=== PATIENT | male | born 1980 | race Caucasian/White ===

== ENCOUNTER 2017-11-21 01:28 | Inpatient (IN) | payer OTHER ==
[2017-11-21 01:52] VITALS: BMI 34.4
--- NOTE | 2017-11-21 02:23 | PDOC ---
History of Present Illness - General Chief Complaint: Pain, Acute Stated Complaint: STOMACH PAIN Time Seen by Provider: 11/21/17 01:41 History Source: Patient Exam Limitations: No Limitations - History of Present Illness Travel History: No Initial Comments: 11/21/17 02:48 Best Contact: PCP: None Pmhx: Hypertension, prediabetes Pshx:? Microlumbar discectomy/lumbar Allergies: NO KNOWN DRUG ALLERGIES FH:None Social Hx: Cigarettes/ 0 Alcohol/ 0 Drugs/0 LMP:N/A 37-year-old male presents to the ER complaining of lower abdominal pains with nausea but no vomiting. Patient denies fever, chills, headache, dizziness, lightheadedness, chest pain, shortness of breath, flank pains, urinary symptoms : Frequency/urgency/hesitancy, hematuria. Pain is described as 8/10 pressure nonradiating intermittent discomfort. The pain is exacerbated when laying prone and alleviated when laying supine. Patient states when he was [place] 8 months ago, he was diagnosed with appendicitis and cholecystitis. Patient states he did not have surgery because he believed they only told him that for financial gain. Patient last ate 12 hours ago. Past History - Past Medical History Allergies/Adverse Reactions: Allergies Allergy/AdvReac Type Severity Reaction Status Date / Time No Known Allergies Allergy Verified 11/21/17 02:09 COPD: No - Suicide/Smoking/Psychosocial Hx Smoking History: Never smoked Have you smoked in the past 12 months: No Information on smoking cessation initiated: No Hx Alcohol Use: No Drug/Substance Use Hx: No Review of Systems - Review of Systems Able to Perform ROS?: Yes Comments:: 11/21/17 02:51 CONSTITUTIONAL: Absent: fever, chills, diaphoresis, generalized weakness, malaise, loss of appetite HEENT: Absent: rhinorrhea, nasal congestion, throat pain, throat swelling, difficulty swallowing, mouth swelling, ear pain, eye pain, visual Changes CARDIOVASCULAR: Absent: chest pain, loss of consciousness, palpitations, irregular heart rate, peripheral edema RESPIRATORY: Absent: cough, shortness of breath, dyspnea with exertion, orthopnea, wheezing, stridor, hemoptysis GASTROINTESTINAL: +RLQ/LLQ pain Absent: abdominal distension, nausea, vomiting, diarrhea, constipation, melena, hematochezia GENITOURINARY: Absent: dysuria, frequency, urgency, hesitancy, hematuria, flank pain, genital pain MUSCULOSKELETAL: Absent: myalgia, arthralgia, joint swelling SKIN: Absent: rash, itching, pallor HEMATOLOGIC/IMMUNOLOGIC: Absent: easy bleeding, easy bruising, lymphadenopathy, frequent infections ENDOCRINE: Absent: unexplained weight gain, unexplained weight loss, heat intolerance, cold intolerance NEUROLOGIC: Absent: headache, focal weakness or paresthesias, dizziness, unsteady gait, seizure, mental status changes, bladder or bowel incontinence PSYCHIATRIC: Absent: anxiety, depression, suicidal or homicidal ideation, hallucinations. Is the patient limited Lao proficient: No *Physical Exam - Vital Signs Last Vital Signs Temp Pulse Resp BP Pulse Ox 101.4 F H 96 H 20 153/98 99 11/21/17 01:40 11/21/17 01:40 11/21/17 01:40 11/21/17 01:40 11/21/17 01:40 - Physical Exam Comments: 11/21/17 02:52 GENERAL: Well developed, well nourished. Awake and alert. No acute distress. HEENT: Normocephalic, atraumatic. PERRLA, EOMI. No conjunctival pallor. Sclera are non- icteric. Moist mucous membranes. Oropharynx is clear. NECK: Supple. Full ROM. No JVD. Carotid pulses 2+ and symmetric, without bruits. No thyromegaly. No lymphadenopathy. CARDIOVASCULAR: Regular rate and rhythm. No murmurs, rubs, or gallops. Distal pulses are 2+ and symmetric. PULMONARY: No evidence of respiratory distress. Lungs clear to auscultation bilaterally. No wheezing, rales or rhonchi. ABDOMINAL: +RLQ/LLQ pain on palp Soft. Non-distended. No rebound or guarding. No organomegaly. Normoactive bowel sounds. MUSCULOSKELETAL Normal range of motion at all joints. No bony deformities or tenderness. No CVA tenderness. EXTREMITIES: No cyanosis. No clubbing. No edema. No calf tenderness. SKIN: Warm and dry. Normal capillary refill. No rashes. No jaundice. NEUROLOGICAL: Alert, awake, appropriate. Cranial nerves 2-12 intact. No deficits to light touch and temperature in face, upper extremities and lower extremities. No motor deficits in the in face, upper extremities and lower extremities. Normoreflexic in the upper and lower extremities. Normal speech. Toes are down- going bilaterally. Gait is normal without ataxia. PSYCHIATRIC: Cooperative. Good eye contact. Appropriate mood and affect. ED Treatment Course - LABORATORY CBC & Chemistry Diagram: 11/21/17 02:19 11/21/17 02:19 - RADIOLOGY Radiograph Interpretation: 11/21/17 02:52 CT abd/pelvis po/iv contrast; Positive for acute appendicitis. The appendix is dilated up to 1.8 cm. There is wall thickening and periappendiceal inflammation. No abscess. No free air. No free fluid. No bowel obstruction. Right renal cyst. Otherwise normal kidneys urinary tract and urinary bladder. Normal liver, normal gallbladder, normal spleen, normal pancreas Progress Note - Progress Note Progress Note: 0501hrs: called Dr. Fernandez/ Surgery validation scientist/Dr. Simpson covering [phone] 0505hrs: Microblogged Hospitalist 0555hrsL Called Dr. Fernandez/surgery validation scientist/Dr. Simpson covering [phone] 0604hrs: Spoke to Dr. Simpson regarding pt. Will call nursing hatchery supervisor to book case 0605hrs; Hospitallist microblogged *DC/Admit/Observation/Transfer Diagnosis at time of Disposition: Acute appendicitis Qualifiers: Acute appendicitis type: unspecified acute appendicitis type Qualified Code(s) : K35.80 - Unspecified acute appendicitis - Discharge Dispostion Condition at time of disposition: Guarded Decision to Admit order: Yes - Referrals - Patient Instructions - Post Discharge Activity
[2017-11-21 02:27] LABS: BASO % 0.6 % (0-2.0); EOS % 1.1 % (0-4.5); HEMATOCRIT 41.3 % (35.4-49); LYMPH % 16.6 % (8-40); MCH 29.6 pg (25.7-33.7); MCHC 33.9 g/dl (32.0-35.9); MEAN CELL VOLUME 87.4 fl (80-96); MEAN PLT VOLUME 9.1 fl (7.5-11.1); MONO % 6.9 % (3.8-10.2); NEUT % 74.8 % (42.8-82.8); PLATELET COUNT 188 K/MM3 (134-434); RBC 4.72 M/mm3 (4.00-5.60); RDW 12.6 % (11.9-15.9); WHITE BLOOD COUNT 10.9 K/mm3 (4.0-10.0)
[2017-11-21] MEDS ORDERED: SODIUM CHLORIDE 0.9% 500 ML INFUS.BAG IV ONE (02:29)
[2017-11-21 02:42] LABS: INR 1.3 (0.82-1.09); PROTHROMBIN TIME (PATIENT) 14.7 SEC (9.7-13.0)
[2017-11-21 02:53] LABS: ALBUMIN 3.4 g/dl (3.4-5.0); ALK PHOS 66 U/L (45-117); ANION GAP 9 (8-16); BILIRUBIN,TOTAL 0.6 mg/dL (0.2-1.0); BLOOD UREA NITROGEN 10 mg/dL (7-18); CALCIUM 8.6 mg/dL (8.5-10.1); CHLORIDE 104 mmol/L (98-107); CO2 25 mmol/L (21-32); CREATININE 0.8 mg/dL (0.7-1.3); GLUCOSE,RANDOM 107 mg/dL (74-106); POTASSIUM 3.6 mmol/L (3.5-5.1); SGOT/AST 11 U/L (15-37); SGPT/ALT 24 U/L (12-78); SODIUM 138 mmol/L (136-145); TOT PROT 6.5 g/dl (6.4-8.2)
[2017-11-21] MEDS ORDERED: ONDANSETRON 4 MG/2 ML VIAL ONE ×3 (04:38→08:23)
[2017-11-21] MEDS ORDERED: morphine SULFATE 4 MG/ML VIAL ONE (04:38)
[2017-11-21] MEDS ORDERED: ONDANSETRON 4 MG/2 ML VIAL IVPUSH ONE (04:43)
[2017-11-21] MEDS ORDERED: morphine CARPU-JECT 4 MG/1 ML DISP.SYRIN IVPUSH ONE (04:43)
[2017-11-21] MEDS ORDERED: PIPERACILLIN/TAZOB 4.5 GM 4.5 GM in DEXTROSE 5%-WATER 100 ML IVPB ONE ×4 (05:01→21:00)
[2017-11-21] MEDS ORDERED: PIPERACILLIN/TAZOB 4.5 GM 4.5 GM/100 ML BAG IVPB ONE (05:04)
[2017-11-21 05:19] LABS: URINE APPEARANCE CLEAR; URINE BILIRUBIN NEGATIVE (<2.0 mg/dL); URINE BLOOD NEGATIVE (NEGATIVE); URINE COLOR LTYELLOW; URINE GLUCOSE (UA) NEGATIVE (NEGATIVE); URINE KETONE NEGATIVE (NEGATIVE); URINE LEUK ESTERASE NEGATIVE (NEGATIVE); URINE NITRITE NEGATIVE (NEGATIVE); URINE PROTEIN NEGATIVE (NEGATIVE)
--- NOTE | 2017-11-21 05:35 | PN ---
Teaching Attending Note Name of Resident: Tomás Sofia ATTENDING PHYSICIAN STATEMENT I saw and evaluated the patient. I reviewed the resident's note and discussed the case with the resident. I agree with the resident's findings and plan as documented. SUBJECTIVE: Patient is a 37 year old man with history of hypertension who presents to the ER complaining of lower abdominal pains with nausea but no vomiting. Patient denies fever, chills, headache, dizziness, lightheadedness, chest pain, shortness of breath, flank pains, frequency or dysuria. Has had one episode of loose BM while in the ER. Pain is described as 8/10 pressure nonradiating intermittent discomfort. The pain is exacerbated when laying prone and alleviated when laying supine. Patient states when he was [place] 8 months ago, he was diagnosed with appendicitis and cholecystitis. Patient states he did not have surgery because he believed they only told him that for financial gain. Patient last ate about [address] of the abdomen showed acute appendicitis. OBJECTIVE: Alert. Appears uncomfortable. Not in acute respiratory distress. Vital Signs Period Temp Pulse Resp BP Sys/Álvarez Pulse Ox Last 24 Hr 101.4 F 96 20 153/98 99 HEENT: No Jaundice, eye redness or discharge, PERRLA, EOMI. Normocephalic, atraumatic. External ears are normal and hearing is grossly intact. No nasal discharge. Neck: Supple, nontender. No palpable adenopathy or thyromegaly. No JVD Chest: Good effort. Clear to auscultation and percussion. Heart: Regular. No S3, rub or murmur Abdomen: Not distended, soft, tender RLQ with rebound; no HSM. No guarding. Hypoactive bowel sounds. Ext: Peripheral pulses intact. No leg edema. Skin: Warm and dry. No petechiae, rash or ecchymosis. Neuro: Alert. Oriented x3. CN 2-12 grossly intact. Sensation grossly intact in all four extremities and DTR are symmetric. Laboratory Results - last 24 hr 11/21/17 11/21/17 11/21/17 02:19 02:19 02:19 WBC 10.9 H RBC 4.72 Hgb 14.0 Hct 41.3 MCV 87.4 MCH 29.6 MCHC 33.9 RDW 12.6 Plt Count 188 MPV 9.1 Absolute Neuts (auto) 8.1 Neutrophils % 74.8 Lymphocytes % 16.6 Monocytes % 6.9 Eosinophils % 1.1 Basophils % 0.6 Nucleated RBC % 0 PT with INR 14.70 H INR 1.30 H Sodium 138 Potassium 3.6 Chloride 104 Carbon Dioxide 25 Anion Gap 9 BUN 10 Creatinine 0.8 Creat Clearance w eGFR > 60 Random Glucose 107 H Lactic Acid Calcium 8.6 Total Bilirubin 0.6 AST 11 L ALT 24 Alkaline Phosphatase 66 Total Protein 6.5 Albumin 3.4 Urine Color Urine Appearance Urine pH Ur Specific [place] Urine Protein Urine Glucose (UA) Urine Ketones Urine Blood Urine Nitrite Urine Bilirubin Urine Urobilinogen Ur Leukocyte Esterase 11/21/17 11/21/17 02:19 05:12 WBC RBC Hgb Hct MCV MCH MCHC RDW Plt Count MPV Absolute Neuts (auto) Neutrophils % Lymphocytes % Monocytes % Eosinophils % Basophils % Nucleated RBC % PT with INR INR Sodium Potassium Chloride Carbon Dioxide Anion Gap BUN Creatinine Creat Clearance w eGFR Random Glucose Lactic Acid 1.8 Calcium Total Bilirubin AST ALT Alkaline Phosphatase Total Protein Albumin Urine Color Ltyellow Urine Appearance Clear Urine pH 8.0 Ur Specific [place] 1.015 Urine Protein Negative Urine Glucose (UA) Negative Urine Ketones Negative Urine Blood Negative Urine Nitrite Negative Urine Bilirubin Negative Urine Urobilinogen 2.0 Ur Leukocyte Esterase Negative ASSESSMENT AND PLAN: 1. Acute appendicitis - CT scan confirms appendicitis but no evidence of rupture. Will continue IV Zosyn 3.375 gm q 8 hours, keep him NPO and give IV NS at 100 ml per hour. The ER has already contacted the surgeon. 2. Hypertension - Resume Lisinopril 10 mg bid. 3. DVT prophylaxis - Heparin 5000u sq tid 4. Advance directives - Full code
[2017-11-21] MEDS ORDERED: ONDANSETRON 4 MG/2 ML VIAL IVPUSH PRN ×2 (05:59→19:41)
[2017-11-21] MEDS ORDERED: morphine SULFATE 4 MG/ML VIAL IVPUSH PRN ×2 (05:59→11:32)
[2017-11-21] MEDS ORDERED: LACTATED RINGERS SOLUTION 1,000 ML IV SCH ×2 (06:00→09:30)
--- NOTE | 2017-11-21 06:17 | HP ---
CC: abdominal pain PCP: None HPI: 37 yo M h/o HTN presented to the ED with diffuse abd pain x 1 day. 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 He has had similar sx in Jul while he's in [place] but he refused surgery because, according to the patient, the surgeon there was trying to take his gallbladder out together with the appendix. Patient had one episode of diarrhea in the ED. Denies fever, chills, urinary sx, chest pain, shortness of breath, dizziness, melena. PMH: HTN PSH: None Social History: smoker since 16, casual drinker, denies drug use Family History: non-contributory Allergy: NKDA Home Meds: Lisnopril 20mg daily Tylenol PRN ROS: Constitutional: no fever, +loss of appetite, no weakness or weight change HEENT: +headache, nasal congestion, sore throat, ear pain, vision change Skin: No rash or lesion Cardiovascular: no chest pain, no sob Pulmonary: No cough (dry or productive), colored sputum Endocrine: No polyuria, polydipsia, skin /hair changes, heat/cold intolerance. GI: +active abd pain, no nausea, no vomiting : No frequency, urgency, dysuria, or hematuria. MSK: No joint or muscle pain Psychology: No depression, anxiety, or insomnia. Physical Examination Temp Pulse Resp BP Pulse Ox 101.4 F H 96 H 20 153/98 99 11/21/17 01:40 11/21/17 01:40 11/21/17 01:40 11/21/17 01:40 11/21/17 01:40 General: AAO x 3. able to speak full sentences, NAD appropriate to stated age. Eyes: PERRLA ENT: Oropharynx clear with no lesions/erythema. Neck: Supple with no LAD or masses. Lymph Nodes: No cervical or inguinal LAD. Cardiovascular: RRR, S1 and S2 normal, no m/g/r. Lungs: CTAB Abdomen: Hypoactive bowel sounds. Non-distended, severe tenderness even upon light palpation, +rebound, +psoas sign -rovsing sign Extremeties: No peripheral edema CBCD WBC 10.9 K/mm3 (4.0-10.0) H 11/21/17 02:19 RBC 4.72 M/mm3 (4.00-5.60) 11/21/17 02:19 Hgb 14.0 GM/dL (11.7-16.9) 11/21/17 02:19 Hct 41.3 % (35.4-49) 11/21/17 02:19 MCV 87.4 fl (80-96) 11/21/17 02:19 MCHC 33.9 g/dl (32.0-35.9) 11/21/17 02:19 RDW 12.6 % (11.9-15.9) 11/21/17 02:19 Plt Count 188 K/MM3 (134-434) 11/21/17 02:19 MPV 9.1 fl (7.5-11.1) 11/21/17 02:19 CMP Sodium 138 mmol/L (136-145) 11/21/17 02:19 Potassium 3.6 mmol/L (3.5-5.1) 11/21/17 02:19 Chloride 104 mmol/L (98-107) 11/21/17 02:19 Carbon Dioxide 25 mmol/L (21-32) 11/21/17 02:19 Anion Gap 9 (8-16) 11/21/17 02:19 BUN 10 mg/dL (7-18) 11/21/17 02:19 Creatinine 0.8 mg/dL (0.7-1.3) 11/21/17 02:19 Creat Clearance w eGFR > 60 (>60) 11/21/17 02:19 Calcium 8.6 mg/dL (8.5-10.1) 11/21/17 02:19 Total Bilirubin 0.6 mg/dL (0.2-1.0) 11/21/17 02:19 AST 11 U/L (15-37) L 11/21/17 02:19 ALT 24 U/L (12-78) 11/21/17 02:19 Alkaline Phosphatase 66 U/L (45-117) 11/21/17 02:19 Total Protein 6.5 g/dl (6.4-8.2) 11/21/17 02:19 Albumin 3.4 g/dl (3.4-5.0) 11/21/17 02:19 Imaging: CT abd on 11/21: acute appendicitis. A/P: 37 yo M admitted to med-surg for acute appendicitis. Acute appendicitis, non-perforated - Hemodynamically stable - Cont. Zosyn - Morphine for pain control - Aggressive fluid resusitation - NPO - T&S, coag - Surgery onboard FEN - LR 150cc/hr - Replete lytes prn - NPO HTN - BP controlled off med Prophylaxis - DVT: SCDs Dispo - appendectomy today [facility] PGY2 Pager: [phone] Visit type - Emergency Visit Emergency Visit: Yes ED Registration Date: 11/21/17 Care time: The patient presented to the Emergency Department on the above date and was hospitalized for further evaluation of their emergent condition. - New Patient This patient is new to me today: Yes Date on this admission: 11/22/17 - Critical Care Critical Care patient: No Hospitalist Screening - Colonoscopy Questionnaire Colonoscopy Questionnaire: Colonoscopy Questionnaire - Patient: 50 - 75 years old and never had a screening colonoscopy: Unknown History of colon or rectal polyps, or CA: Unknown History of IBD, Crohn's disease or UC: Unknown History of abdominal radiation therapy as a child: Unknown - Relative: 1 with colon or rectal CA, or polyps at age 60 or younger: Unknown Colon or rectal CA diagnosed at age 45 or younger: Unknown Multiple relatives with colon or rectal CA: Unknown - Outcome: Screening Result: Negative Screen
[2017-11-21] MEDS ORDERED: SUCCINYLCHOLINE CHLORIDE 200 MG/10 ML VIAL ONE (07:29)
[2017-11-21] MEDS ORDERED: PROPOFOL 20 ML ONE (07:29)
[2017-11-21] MEDS ORDERED: ROCURONIUM BROMIDE 50 MG/5 ML VIAL ONE (07:29)
[2017-11-21] MEDS ORDERED: fentaNYL CITRATE 250 MCG/5 ML VIAL ONE (07:29)
[2017-11-21] MEDS ORDERED: BUPIVACAINE HCL/PF 0.5% (5MG/ML) 10 ML VIAL ONE (07:48)
--- NOTE | 2017-11-21 07:55 | CONSULT ---
Consult Consult Specialty:: General Surgery Reason for Consultation:: Acute appendicitis - History of Present Illness Chief Complaint: abdominal pain and fever History of Present Illness: Asked to evaluate this patient who presented to ED c/o one day of lower abdominal apin worse in RLQ and fever and nausea, no vomiting, No other symptoms. Patient has h/o of HTN and had one prior episode several months ago while in [place] prompting a CT scan. Patient given diagnosis of "acute appendicitis " but he opted NOT to have surgery at that time. In ED patient found to have RLQ pain and tenderness with localized rebound, mild fever and mild tachycardia, stable BP with elevated WBC on labs. - History Source History Provided By: Patient, Medical Record Limitations to Obtaining History: No Limitations - Past Medical History Cardio/Vascular: Yes: HTN - Past Surgical History Past Surgical History: Yes: None - Alcohol/Substance Use Hx Alcohol Use: No - Smoking History Smoking history: Current every day smoker Have you smoked in the past 12 months: No Aproximately how many cigarettes per day: 2 - Social History Usual Living Arrangement: With Child Home Medications - Allergies Allergies/Adverse Reactions: Allergies Allergy/AdvReac Type Severity Reaction Status Date / Time No Known Allergies Allergy Verified 11/21/17 02:09 - Home Medications Home Medications: Ambulatory Orders NK [No Known Home Medication] 11/21/17 Family Disease History - Family Disease History Family History: Unremarkable Review of Systems Unable to obtain ROS, reason: this is an error - Review of Systems Constitutional: reports: Fever, Malaise. denies: Chills Eyes: denies: Blurred Vision, Recent Change in Vision HENT: denies: Difficult Swallowing, Nasal Congestion Neck: denies: Decreased ROM, Pain on Movement Cardiovascular: denies: Chest Pain, Palpitations Respiratory: denies: Cough, SOB Gastrointestinal: reports: Abdominal Pain (severe RLQ pain), Nausea. denies: Constipation, Vomiting Genitourinary: denies: Burning, Discharge, Flank Pain Musculoskeletal: denies: Joint Pain, Muscle Weakness Integumentary: denies: Change in Color, Pruritis, Rash Neurological: denies: Change in LOC Psychiatric: denies: Anxiety, Depression Physical Exam Vital Signs: Vital Signs Temperature 98.9 F 11/21/17 07:49 Pulse Rate 80 11/21/17 07:49 Respiratory Rate 16 11/21/17 07:49 Blood Pressure 125/83 11/21/17 07:49 O2 Sat by Pulse Oximetry (%) 99 11/21/17 07:49 Constitutional: Yes: Anxious, Mild Distress, Obese Eyes: Yes: Conjunctiva Clear, EOM Intact HENT: Yes: Atraumatic, Normocephalic Neck: Yes: Supple, Trachea Midline Cardiovascular: Yes: Regular Rate and Rhythm. No: Tachycardia Respiratory: Yes: Regular, CTA Bilaterally Gastrointestinal: Yes: Soft, Abdomen, Obese, Tenderness (RLQ), Tenderness, Rebound (Mild localized) Renal/: No: Bladder Distention, Oliguria Musculoskeletal: No: Joint Stiffness, Joint Swelling Extremities: No: Cool, Cyanosis Neurological: Yes: Alert, Oriented Labs: CBC, BMP 11/21/17 02:19 11/21/17 02:19 Imaging - Results Cat Scan: Report Reviewed, Image Reviewed (I personally reviewed the CT scan abd pelvis. Evidence of acute appendicitis, dilated to 2 cm, with pericoloinc fat stranding, no evidence rupture, no fluid collections.) Problem List - Problems (1) Acute appendicitis Assessment/Plan: CT and clinical evidence of advanced stage acute appendicitis. IV fluids and broad spectrum IV ABx given. To OR emergently for lap appendectomy. Code(s): K35.80 - UNSPECIFIED ACUTE APPENDICITIS Qualifiers: Acute appendicitis type: unspecified acute appendicitis type Qualified Code (s): K35.80 - Unspecified acute appendicitis (2) Abdominal pain Assessment/Plan: CT diagnosis of acute appendicitis as cuase of severe abdominal pain Code(s): R10.9 - UNSPECIFIED ABDOMINAL PAIN Qualifiers: Abdominal location: right lower quadrant Qualified Code(s): R10.31 - Right lower quadrant pain (3) Nausea alone Assessment/Plan: Nausea likely related to acute appendicitis Code(s): R11.0 - NAUSEA (4) Hypertension Assessment/Plan: Patient hyperstensive on presentation which resolved with IV fluids and IV pain meds. Code(s): I10 - ESSENTIAL (PRIMARY) HYPERTENSION
[2017-11-21] MEDS ORDERED: DEXAMETHASONE SOD PHOSPHATE 4 MG/1 ML VIAL ONE ×2 (08:02→08:23)
[2017-11-21] MEDS ORDERED: HEPARIN NA (PORCINE) 5,000 UNITS/ML 1ML VIAL ONE (08:07)
[2017-11-21] MEDS ORDERED: KETOROLAC TROMETHAMINE 30 MG/1 ML VIAL ONE (08:54)
[2017-11-21] MEDS ORDERED: BUPIVACAINE HCL/PF 0.5% (5MG/ML) 10 ML VIAL IJ ONE ×2 (09:02)
[2017-11-21] MEDS ORDERED: BENZOIN/ALOE VERA/STORAX/TOLU 58 ML BOTTLE ONE (09:10)
[2017-11-21] MEDS ORDERED: PROMETHAZINE HCL 25 MG/1 ML VIAL IVPUSH PRN (09:29)
[2017-11-21] MEDS ORDERED: LACTATED RINGERS SOLUTION 1000 ML INFUS.BAG IV SCH (10:00)
[2017-11-21] MEDS: ACETAMINOPHEN 1000 MG/100 ML VIAL (NON FORMULARY) IVPB PRN ×2 (10:05→16:20)
--- NOTE | 2017-11-21 10:24 | PN ---
Physical Exam: SUBJECTIVE: Patient seen and examined, some pain post surgery but feels better, no new complaints. OBJECTIVE: Vital Signs Period Temp Pulse Resp BP Sys/Álvarez Pulse Ox Last 24 Hr 98.9 F-101.4 F 72-96 16-20 121-153/79-98 98-99 General: lying in bed in no acute distress Chest: CTAB, no rales or wheezing Abdomen: soft, obese, RLQ tenderness but improved from exam per patient, unable to hear bowel sounds (just came back from OR), no voluntary or involuntary guarding or rigidity Extremities: no edema Laboratory Results - last 24 hr 11/21/17 11/21/17 11/21/17 02:19 02:19 02:19 WBC 10.9 H RBC 4.72 Hgb 14.0 Hct 41.3 MCV 87.4 MCH 29.6 MCHC 33.9 RDW 12.6 Plt Count 188 MPV 9.1 Absolute Neuts (auto) 8.1 Neutrophils % 74.8 Lymphocytes % 16.6 Monocytes % 6.9 Eosinophils % 1.1 Basophils % 0.6 Nucleated RBC % 0 PT with INR 14.70 H INR 1.30 H Sodium 138 Potassium 3.6 Chloride 104 Carbon Dioxide 25 Anion Gap 9 BUN 10 Creatinine 0.8 Creat Clearance w eGFR > 60 Random Glucose 107 H Lactic Acid Calcium 8.6 Total Bilirubin 0.6 AST 11 L ALT 24 Alkaline Phosphatase 66 Total Protein 6.5 Albumin 3.4 Urine Color Urine Appearance Urine pH Ur Specific [place] Urine Protein Urine Glucose (UA) Urine Ketones Urine Blood Urine Nitrite Urine Bilirubin Urine Urobilinogen Ur Leukocyte Esterase 11/21/17 11/21/17 02:19 05:12 WBC RBC Hgb Hct MCV MCH MCHC RDW Plt Count MPV Absolute Neuts (auto) Neutrophils % Lymphocytes % Monocytes % Eosinophils % Basophils % Nucleated RBC % PT with INR INR Sodium Potassium Chloride Carbon Dioxide Anion Gap BUN Creatinine Creat Clearance w eGFR Random Glucose Lactic Acid 1.8 Calcium Total Bilirubin AST ALT Alkaline Phosphatase Total Protein Albumin Urine Color Ltyellow Urine Appearance Clear Urine pH 8.0 Ur Specific [place] 1.015 Urine Protein Negative Urine Glucose (UA) Negative Urine Ketones Negative Urine Blood Negative Urine Nitrite Negative Urine Bilirubin Negative Urine Urobilinogen 2.0 Ur Leukocyte Esterase Negative Active Medications Generic Name Dose Route Start Last Admin Trade Name Freq PRN Reason Stop Dose Admin Acetaminophen 1,000 mg 11/21/17 09:51 Ofirmev Injection - IVPB 11/22/17 23:59 Q6H PRN PAIN LEVEL 6-10 Lactated Ringer's 1,000 mls @ 150 mls/hr 11/21/17 06:00 11/21/17 06:09 Lactated Ringers Solution IV 150 mls/hr ASDIR PAULY Administration Piperacillin Sod/Tazobactam 100 mls @ 200 mls/hr 11/21/17 13:00 Sod 4.5 gm/ Dextrose IVPB 11/21/17 13:29 ONCE ONE Protocol Piperacillin Sod/Tazobactam 100 mls @ 200 mls/hr 11/21/17 21:00 Sod 4.5 gm/ Dextrose IVPB 11/21/17 21:29 ONCE ONE Protocol Piperacillin Sod/Tazobactam 100 mls @ 200 mls/hr 11/21/17 13:00 Sod 4.5 gm/ Dextrose IVPB 11/21/17 13:29 ONCE ONE Protocol Lactated Ringer's 100 ml 11/21/17 10:00 Lactated Ringers Solution IV 11/23/17 23:59 Q10H PAULY Morphine Sulfate 2 mg 11/21/17 05:59 Morphine Sulfate IVPUSH Q4H PRN PAIN LEVEL 7 - 10 Ondansetron HCl 4 mg 11/21/17 05:59 Zofran Injection IVPUSH Q6H PRN NAUSEA Promethazine HCl 12.5 mg 11/21/17 09:29 Phenergan Injection - IVPUSH Q6H PRN NAUSEA-FOR RESCUE AFTER 15 MIN ASSESSMENT/PLAN: 37 yom with PMHx of HTN admitted with acute appendicitis without perforation. -Acute micoperforated appendicitis s/p lap appendectomy -HTN Plan: s/p lap appendectomy. Discussed with meredith Jason one additional dose. PO as tolerated. Encourage ambulation/incentive spirometry. Resume ACEi in 24hours if taking pO well and no renal concerns. change IVF to D5NS till adequate PO. DVTPPX per surgery dispo d/c home in 24 hours if no new concerns. Visit type - Emergency Visit Emergency Visit: No - New Patient This patient is new to me today: Yes Date on this admission: 11/21/17 - Critical Care Critical Care patient: No
--- NOTE | 2017-11-21 10:29 | OP ---
Operative Note - Note: Operative Date: 11/21/17 Pre-Operative Diagnosis: acute appendicits Operation: laparoscopic appendectomy Findings: Micro-perforated appendix with small sushila-appendiceal collection Post-Operative Diagnosis: Same as Pre-op Surgeon: Warren Simpson Anesthesiologist/SINGLE NEEDLE OPERATOR: Mamadou Lawrence Anesthesia: General Specimens Removed: appendix Estimated Blood Loss (mls): 10 Fluid Volume Replaced (mls): 900 Operative Report Dictated: Yes
[2017-11-21] MEDS ORDERED: PIPERACILLIN/TAZOBACTAM 4.5 GM VIAL IVPB ONE (12:42)
[2017-11-21] MEDS ORDERED: DEXTROSE 5%-WATER 100 ML IVPB ONE (12:42)
[2017-11-21] MEDS: LACTATED RINGERS SOLUTION 1,000 ML IV SCH ×2 (18:46→22:11)
[2017-11-21] MEDS ORDERED: ACETAMINOPHEN 1000 MG/100 ML VIAL (NON FORMULARY) IVPB PRN (19:41)
[2017-11-22 07:47] LABS: CHLORIDE 108 mmol/L (98-107); POTASSIUM 4.2 mmol/L (3.5-5.1); SODIUM 140 mmol/L (136-145)
[2017-11-22 07:49] LABS: BASO % 0.1 % (0-2.0); HEMOGLOBIN 12.9 GM/dL (11.7-16.9); MCH 29.8 pg (25.7-33.7); MCHC 33.9 g/dl (32.0-35.9); MEAN CELL VOLUME 87.8 fl (80-96); MEAN PLT VOLUME 9.7 fl (7.5-11.1); MONO % 5.8 % (3.8-10.2); NEUT % 82.1 % (42.8-82.8); PLATELET COUNT 209 K/MM3 (134-434); RBC 4.32 M/mm3 (4.00-5.60); RDW 12.7 % (11.9-15.9); WHITE BLOOD COUNT 12.5 K/mm3 (4.0-10.0)
[2017-11-22 07:51] LABS: ANION GAP 5 (8-16); BLOOD UREA NITROGEN 9 mg/dL (7-18); CALCIUM 8.5 mg/dL (8.5-10.1); CO2 27 mmol/L (21-32); CREATININE 0.5 mg/dL (0.7-1.3); GLUCOSE,RANDOM 108 mg/dL (74-106)
--- NOTE | 2017-11-22 10:59 | PN ---
Progress Note (short form) - Note Progress Note: POD #1 - s/p laparoscopic appendectomy under general anesthesia. VSS. Pt. doing well, resting comfortably in bed. No complaints. No apparent anesthetic complications noted. Continue current care.
--- NOTE | 2017-11-22 13:22 | PN ---
Progress Note, Physician Chief Complaint: Patient states only mild discomfort at incisions, denies nausea, vomiting, constipation, ambulating well, tolerating regular diet. History of Present Illness: Asked to evaluate this patient who presented to ED c/o one day of lower abdominal pain worse in RLQ and fever and nausea, no vomiting, No other symptoms. In ED patient found to have RLQ pain and tenderness with localized rebound, mild fever and mild tachycardia, stable BP with elevated WBC on labs. CT scan revealed acute appendicitis with appendix dilated to 2 cm, no collections. Patient taken to OR emergently for laparoscopic appendectomy. - Current Medication List Current Medications: see Med Rec - Objective Vital Signs: Vital Signs Temperature 97.3 F L 11/22/17 10:00 Pulse Rate 81 11/22/17 10:00 Respiratory Rate 18 11/22/17 10:00 Blood Pressure 152/99 11/22/17 10:00 O2 Sat by Pulse Oximetry (%) 94 L 11/22/17 09:00 Constitutional: Yes: No Distress, Calm, Obese Eyes: Yes: Conjunctiva Clear, EOM Intact HENT: Yes: Atraumatic, Normocephalic Neck: Yes: Supple, Trachea Midline Cardiovascular: Yes: Regular Rate and Rhythm. No: Tachycardia Respiratory: Yes: Regular, CTA Bilaterally Gastrointestinal: Yes: Soft, Abdomen, Obese, Tenderness (mild at laproscopic incisions) ...Rectal Exam: Yes: Deferred Genitourinary: No: Bladder Distention, Francis Present Musculoskeletal: No: Muscle Pain, Muscle Weakness Extremities: No: Calf Tenderness, Cyanosis Edema: No Wound/Incision: Yes: Dressing Dry and Intact, Other (slight ecchymosis at umbilical incision) Neurological: Yes: Alert, Oriented Labs: CBC, BMP 11/22/17 06:30 11/22/17 06:30 INR, PTT INR 1.30 (0.82-1.09) H 11/21/17 02:19 Problem List - Problems (1) Acute appendicitis Assessment/Plan: S/P laparoscopic appendectomy. Intra-op findings revealed a micro-perforated appendix with small sushila-appendiceal abscess, no purulent peritoneal fluid, no obvious fecal spillage. Patient is doing well, afebrile, only mild incisional pain well controlled, ambulating well, tolerating a regular diet, Today's WBD is slightly elevated to 12.5 but patient remains afebrile. Recommend: 1. OK to D/C home today despite mild elevation in WBC as patient is clinically stable. Would keep on PO broad spectrum ABX. Augmentin 875mg PO BID x 7 days. 2. Post op wound instructions given to patient verbally. 3. Activity: No lifting heavier than 20 lbs for 2 weeks. Patient will need excuse from work which requires heavy lifting to 50 lbs according to patient. Code(s): K35.80 - UNSPECIFIED ACUTE APPENDICITIS Qualifiers: Acute appendicitis type: unspecified acute appendicitis type Qualified Code (s): K35.80 - Unspecified acute appendicitis (2) Abdominal pain Assessment/Plan: CT diagnosis of acute appendicitis as cause of severe abdominal pain. Abdominal pain resolved. Code(s): R10.9 - UNSPECIFIED ABDOMINAL PAIN Qualifiers: Abdominal location: right lower quadrant Qualified Code(s): R10.31 - Right lower quadrant pain (3) Nausea alone Code(s): R11.0 - NAUSEA (4) Hypertension Code(s): I10 - ESSENTIAL (PRIMARY) HYPERTENSION
[2017-11-22] MEDS ORDERED: AMOX TR/POT CLAV 875MG/125MG TABLETS (FP) PO ONE (14:15)
--- NOTE | 2017-11-22 15:48 | PN ---
Teaching Attending Note Name of Resident: Tomás Sofia ATTENDING PHYSICIAN STATEMENT I saw and evaluated the patient. I reviewed the resident's note and discussed the case with the resident. I agree with the resident's findings and plan as documented with exceptions below. SUBJECTIVE: Patient seen and examined. mild abdominal soreness around surgical site, no new fevers/chills, pain or vomiting, tolerating diet well, had a BM and ambulating well. OBJECTIVE: Vital Signs Period Temp Pulse Resp BP Sys/Álvarez Pulse Ox Last 24 Hr 97.3 F-98.6 F 79-87 18-20 142-158/80-99 94-97 Intake & Output 11/19/17 11/20/17 11/21/17 11/22/17 23:59 23:59 23:59 23:59 Intake Total 2640 1200 Output Total 730 200 Balance 1910 1000 Weight 240 lb General: lying in bed in no acute distress Abdomen: positive bowel sounds, soft, mild ecchymosis below one of the laparoscopic sites with minimal superifical tenderness, NT otherwise, no voluntary or involuntary guarding or rigidity Home Medications Medication Instructions Recorded Acetaminophen [Pain Reliever] 500 mg PO Q6H PRN #10 tablet 11/22/17 Amoxicillin/Potassium Clav 1 each PO BID #14 tablet 11/22/17 [Augmentin 875-125 Tablet] Ibuprofen 200 mg PO TID PRN #10 tablet 11/22/17 Active Medications Acetaminophen (Ofirmev Injection -) 1,000 mg IVPB Q6H PRN PRN Reason: PAIN LEVEL 6-10 Stop: 11/22/17 23:59 Last Admin: 11/21/17 22:10 Dose: 1,000 mg Ondansetron HCl (Zofran Injection) 4 mg IVPUSH Q6H PRN PRN Reason: NAUSEA Laboratory Results - last 24 hr 11/22/17 11/22/17 06:30 06:30 WBC 12.5 H RBC 4.32 Hgb 12.9 Hct 38.0 MCV 87.8 MCH 29.8 MCHC 33.9 RDW 12.7 Plt Count 209 MPV 9.7 Absolute Neuts (auto) 10.3 Neutrophils % 82.1 Lymphocytes % 12.0 D Monocytes % 5.8 Eosinophils % 0.0 D Basophils % 0.1 Nucleated RBC % 0 Sodium 140 Potassium 4.2 Chloride 108 H Carbon Dioxide 27 Anion Gap 5 L BUN 9 Creatinine 0.5 L D Random Glucose 108 H Calcium 8.5 Magnesium 2.0 Microbiology 11/21/17 02:19 Blood - Peripheral Venous Blood Culture - Preliminary NO GROWTH OBTAINED AFTER 24 HOURS, INCUBATION TO CONTINUE FOR 4 DAYS. 11/21/17 02:19 Blood - Peripheral Venous Blood Culture - Preliminary NO GROWTH OBTAINED AFTER 24 HOURS, INCUBATION TO CONTINUE FOR 4 DAYS. ASSESSMENT AND PLAN: 37 yom with PMHx of HTN admitted with acute appendicitis without perforation. -Acute micoperforated appendicitis s/p lap appendectomy -HTN Plan: doing well post op. Discussed with Dr. Simpson, arnoldo for d/c with 1 week of augmentin and outpatient follow up in 1-2 weeks. Activity instructions and avoid exertion or heavy lifting have been discussed with patient by Dr. Simpson. d/c home today with outpatient follow up. plan discussed with patient in detail, all questions answered.
--- NOTE | 2017-11-22 19:45 | DS ---
Physical Exam: SUBJECTIVE: Patient seen and examined at bedside. Pt feels well. Passed gas. Ate. Had BM. Ambulated. OBJECTIVE: Vital Signs Period Temp Pulse Resp BP Sys/Álvarez Pulse Ox Last 24 Hr 97.3 F-98.3 F 79-86 18-20 142-158/80-99 94-97 PHYSICAL EXAM Gen: NAD HEENT: NCAT, eomi Neck: supple Cardiac: s1s2, RRR, no mrg pulm: cta b/l abd: tender at surgical sites LABS Laboratory Results - last 24 hr 11/22/17 11/22/17 06:30 06:30 WBC 12.5 H RBC 4.32 Hgb 12.9 Hct 38.0 MCV 87.8 MCH 29.8 MCHC 33.9 RDW 12.7 Plt Count 209 MPV 9.7 Absolute Neuts (auto) 10.3 Neutrophils % 82.1 Lymphocytes % 12.0 D Monocytes % 5.8 Eosinophils % 0.0 D Basophils % 0.1 Nucleated RBC % 0 Sodium 140 Potassium 4.2 Chloride 108 H Carbon Dioxide 27 Anion Gap 5 L BUN 9 Creatinine 0.5 L D Random Glucose 108 H Calcium 8.5 Magnesium 2.0 HOSPITAL COURSE: Date of Admission:11/21/17 Date of Discharge: 11/22/17 Pt is a 37 yo M who presented with Abd pain. He was admitted to med-surg for acute appendicitis. The appendix had not perforated and he was hemodynamically stable. Pt was put on Zosyn. He was given Morphine and Aggressive fluid resusitation. He was made NPO. Surgery was called. Pt was taken to OR and successful laparoscopic appendectomy was done. Pt is recovering well. Pt had hx of HTN, but BP was controlled off med. Minutes to complete discharge: 30 Discharge Summary Reason For Visit: ACUTE APPENDICITIS Current Active Problems Abdominal pain (Acute) Acute appendicitis (Acute) Acute appendicitis with appendiceal abscess (Acute) Hypertension (Acute) Nausea alone (Acute) Condition: Good - Instructions Diet, Activity, Other Instructions: Postoperative instructions: You had a laparoscopic appendectomy on 11/21/[address] Warren Simpson from [facility]. Activity: Resume your usual activities gradually, but no heavy exertion or lifting more than 20 pounds for 1 month. Remove dressings 48 hours after surgery ; sticky tapes underneath will fall off by themselves. You may shower daily starting then, just pat the incision areas dry. Eat lightly at first, but advance to your usual diet as tolerated. Pain: For pain, you may use and alternate Tylenol (acetaminophen) and/or ibuprofen every 6 hours each as needed; this means that you can take one OR the other at 3-hour intervals. Do not take more than 4000mg of acetaminophen in a day. Take medications as prescribed or indicated on the labeling. You have been prescribed an oral antibiotic Augmentin 875mg twice daily. Take as prescribed for one week. Follow-up: Call Dr. Simpson' office at [phone] to make your postop appointment (Wednesday ~2 weeks after surgery). Clinic is held in the Diagnostic [facility] on the first floor of [facility]. Call the office if you have: * increasing pain not responsive to pain medication * fever of 101F or higher * vomiting * unusual or increasing bleeding or drainage from wounds * increasing redness or swelling at wound sites * inability to urinate Also, see your primary medical doctor within 1-2 weeks. Referrals: Warren Simpson MD [Staff Physician] - 1 Week Disposition: HOME - Home Medications Comprehensive Discharge Medication List: Ambulatory Orders Acetaminophen [Pain Reliever] 500 mg PO Q6H PRN #10 tablet 11/22/17 Amoxicillin/Potassium Clav [Augmentin 875-125 Tablet] 1 each PO BID #14 tablet 11/22/17 Ibuprofen 200 mg PO TID PRN #10 tablet 11/22/17 This patient is new to me today: Yes Date on this admission: 11/22/17 Emergency Visit: No Critical Care patient: No - Discharge Referral Referred to [facility] Med P.C.: No
[2017-11-22 19:48] VITALS: BP 155/83; PULSE 77; TEMP 98.6
--- NOTE | 2017-11-22 20:16 | OP ---
DATE OF OPERATION: 11/21/2017 PREOPERATIVE DIAGNOSIS: Acute appendicitis. POSTOPERATIVE DIAGNOSIS: Microperforated acute appendicitis with small periappendiceal abscess. SURGEON: Warren Simpson MD LUMBER PULLER: None. ANESTHESIOLOGIST: Mamadou Lawrence MD ANESTHESIA: General. SPECIMENS: Appendix. ESTIMATED BLOOD LOSS: 10 mL FLUID REPLACED: 900 mL PROCEDURE DETAILS: After informed consent was obtained, patient was brought to the operating room and placed supine on the operating table in the standard fashion. Endotracheal anesthesia was administered in the standard fashion. Bilateral sequential compression devices were placed on bilateral lower extremities prior to induction of anesthesia. Abdomen was prepped and draped in a sterile fashion, and abdominal cavity was entered using a Veress needle technique in the following fashion: A small incision was made in the left subcostal margin at the midclavicular line, and a Veress needle was placed within the abdomen. A saline water test was performed to confirm that the Veress needle was in the peritoneal cavity, and the abdomen was then insufflated to 15 mmHg with CO2 gas. The abdominal cavity was entered with a 5-mm 0-degree laparoscope using a 5-mm Visiport technique. The area under the Veress needle entrance was inspected. There was no evidence of bleeding or injury. The laparoscope was exchanged for a 5-mm 30- degree laparoscope, and the abdomen was inspected. There was no purulent fluid noted. Next, a 12-mm blunt port was placed in supraumbilical location, and a 5-mm port was placed in the left lower quadrant. The abdomen was inspected, and the appendix was noted to be partially curled and stuck against the right lateral abdominal wall with inflammatory tissue. Once the tissue was bluntly dissected to free the appendix, it was noted that there was, in fact , a very small periappendiceal abscess which was suctioned immediately. There was no evidence of spillage of fecal content. The appendix itself was noted to be extremely inflamed with an small area of gangrene which was assumed to be the area of microperforation. The appendix was noted to curl around somewhat retrocecally, so the peritoneal reflection of the cecum and the appendix along the white line of Toldt was transected using hook electrocautery. The appendiceal artery was identified and clipped and transected. The base of the cecum was cleared off completely and the base of the appendix was noted to be of normal diameter and soft to palpation. An Endo LINDSEY stapler with a shabazz cartridge load was utilized to come across the base of the appendix. The appendix was then placed in an Endo Catch bag. The staple line was inspected. There was no active bleeding noted. The right lower quadrant and pelvis were irrigated copiously with 1 L of normal saline. The appendix was then removed from the abdomen via the 12-mm port site, and the fascia at the 12-mm port site was repaired using number 1 PDS suture using the Endo Close technique. Approximately 30 mL of 0.25% Marcaine was utilized to inject the port sites under direct visualization to incorporate both the peritoneum and the fascia. Good hemostasis was noted in the abdomen. Sponge count, needle count and instrument count noted to be correct. The abdomen was desufflated prior to removing the last port. Skin was approximated with 4-0 Biosyn and Mastisol and Steri-Strips. Sterile dressings were placed. The patient tolerated the procedure well, was taken to PACU in stable condition. MD OCTAVIO SETHI/[id number] MTDD
--- NOTE | 2017-11-26 15:26 | PATH ---
Surgical Pathology Report Patient Name: ABIMAEL VINCENT [facility]. Rec. #: [id number] /Age/Gender: 1980 (Age: 37) / M Account: [id number] Location: [facility] MED/SURG Taken: 11/21/2017 Received: 11/22/2017 Reported: 11/26/2017 Physicians: Warren Simpson M.D. Specimen(s) Received APPENDIX Clinical History Acute appendicitis Final Diagnosis APPENDIX, LAPAROSCOPIC APPENDECTOMY: LOW-GRADE APPENDICEAL MUCINOUS NEOPLASM, GRADE 1. NEOPLASM MEASURES 0.6 X 0.5 CM IN GREATEST DIMENSION, LOCATED AT DISTAL PORTION TO APPENDIX TIP. ACELLULAR MUCIN EXTENDS TO SEROSAL SURFACE OF MESOAPPENDIX (pT4a). PROXIMAL SURGICAL MARGIN IS NEGATIVE. NO LYMPHOVASCULAR OR PERINEURAL INVASION IDENTIFIED. ACUTE APPENDICITIS AND PERIAPPENDICITIS PRESENT. SEE CASE SUMMARY BELOW AJCC TUMOR STAGE: pT4a pNX. Comments Procedure _X_ Appendectomy + Tumor Site + _X__ Distal half of appendix to tip Tumor Size Greatest dimension (centimeters): 0.6 cm + Additional dimensions (centimeters): 0.5 cm Histologic Type _X_ Low-grade appendiceal mucinous neoplasm Histologic Grade _X_ G1: Well differentiated Tumor Extension _X__ Acellular mucin invades the serosa of mesoappendix Margins Proximal Margin _X_ Uninvolved by appendiceal mucinous neoplasm Lymphovascular Invasion _X__ Not identified Tumor Deposits _X__ Not identified + Perineural Invasion + _X_ Not identified Regional Lymph Nodes _X_ No lymph nodes submitted or found Primary Tumor (pT) _X_ pT4a: Tumor invades through the visceral peritoneum, including the acellular mucin or mucinous epithelium involving the serosa of the appendix or serosa of the mesoappendix Regional Lymph Nodes (pN) _X_ pNX: Regional lymph nodes cannot be assessed + Additional Pathologic Findings + _X_ Acute appendicitis and periappendicitis Comment: Findings discussed with Dr. Simpson. Case seen in interdepartmentally. Electronically Signed Kitty Eli M.D. Gross Description Received in formalin, labeled "appendix," is an 8 cm in length mildly dilated appendix with a stapled margin of resection and moderate attached fat. The serosa shows focal areas of hemorrhage and yellow exudate. No definitive areas of perforation identified. Sectioning reveals a 0.2 cm dilated lumen with areas of bulging extending from the distal end to tip of the appendix containing mucoid secretion, which measures up to 0.6 cm in greatest dimension. The wall of the appendix averages 0.5 cm. in thickness. The entire appendix is submitted as follows: 1- lesion with tip and surgical margin, 2-10- remainder of the appendix. DANIEL/11/22/2017 kathi11/22/2017
== END 2017-11-22 19:00 | disposition home or self-care (01) | DRG 225 ==
LOC: JER 01:28 → JERBED 05:05 → J7W 11:14
PROVIDERS: ADMIT Internal Medicine; ATTEND Hospitalist
PROC: 0DTJ4ZZ Resection of Appendix, Percutaneous Endoscopic Approach (ICD-10-PCS; principal; 2017-11-21 07:20)
DX: K35.3 Acute appendicitis with localized peritonitis (principal); I10 Essential (primary) hypertension; F17.210 Nicotine dependence, cigarettes, uncomplicated; R10.31 Right lower quadrant pain; R11.0 Nausea; N28.1 Cyst of kidney, acquired; R50.9 Fever, unspecified; R00.0 Tachycardia, unspecified; E66.9 Obesity, unspecified; Z68.34 Body mass index [BMI] 34.0-34.9, adult
CPT/HCPCS: 36415; 74177-TC; 80048; 80053; 81003; 83605; 83735; 85025; 85610; 87040; 88304-TC; 94010; 94760; 99285-25; J0131; J1644

== ENCOUNTER 2018-01-09 08:19 | Emergency (ER) | payer OTHER ==
[2018-01-09 08:36] VITALS: TEMP 97.5; BMI 32.7
--- NOTE | 2018-01-09 08:55 | PDOC ---
History of Present Illness - General Chief Complaint: Headache Stated Complaint: HEADACHE Time Seen by Provider: 01/09/18 08:55 History Source: Patient, Tsa Screener Used - History of Present Illness Initial Comments: 01/09/18 09:45 HPI was performed with patient via traffic i manager - [id number]. Pt is a 37 year old male with HTN, appendectomy (x1.5 months ago), headaches presenting for headache that awoke him from sleep at 0300 today. He states his headache is located to his forehead, constant, worsened by light. He states his headache is associated with feeling offbalance, nausea, photophobia, blurry vision. Denies fever, chills, numbness, weakness, tingling, dizziness, neck pain , chest pain, shortness of breath, abdominal pain, vomiting, hematuria, dysuria , urinary incontinence, bowel incontinence. He denies PMH diabetes. He also states 3 days ago he had chest pain that radiated to his last arm and lasted all day. He denies current chest pain. PCP - none, moved from [facility] x5 months ago Surgical history - appendectomy x1 month ago Allergies - NKDA Denies IV drug use, recreational drug use, ETOH use, and nicotine use. Past History - Past Medical History Allergies/Adverse Reactions: Allergies Allergy/AdvReac Type Severity Reaction Status Date / Time No Known Allergies Allergy Verified 01/09/18 08:31 Home Medications: Ambulatory Orders Acetaminophen [Pain Reliever] 500 mg PO Q6H PRN #10 tablet 11/22/17 Ibuprofen 200 mg PO TID PRN #10 tablet 11/22/17 Anemia: No Asthma: No Cancer: No Cardiac Disorders: No CVA: No COPD: No CHF: No Dementia: No Diabetes: No GI Disorders: No Disorders: No HTN: Yes Hypercholesterolemia: No Liver Disease: No Seizures: No Thyroid Disease: No - Surgical History Abdominal Surgery: No Appendectomy: Yes (11/21/2017 lap appendectomy) Cardiac Surgery: No Cholecystectomy: No Lung Surgery: No Neurologic Surgery: No Orthopedic Surgery: Yes (microlumbar discectomy) - Suicide/Smoking/Psychosocial Hx Smoking History: Current every day smoker Have you smoked in the past 12 months: Yes Number of Cigarettes Smoked Daily: 2 Information on smoking cessation initiated: No 'Breaking Loose' booklet given: 11/21/17 Hx Alcohol Use: Yes (socially) Drug/Substance Use Hx: No Substance Use Type: None Hx Substance Use Treatment: No Review of Systems - Review of Systems Able to Perform ROS?: Yes Comments:: 01/09/18 09:48 ROS was performed via traffic i manager. General: denies fever, chills, night sweats, generalized weakness. HEENT: admits to photophobia, blurry vision. denies sore throat, rhinorrhea, ear pain. Heart: denies chest pain, palpitations, syncope, lower extremity swelling. Respiratory: denies shortness of breath, cough, sputum production, hematemesis. Abdomen: admits to nausea. denies abdominal pain, vomiting, diarrhea, constipation, blood in stool. : denies dysuria, urinary frequency, hematuria, urinary incontinence. Back: denies back pain, flank pain. Musculoskeletal: denies joint pain, muscle pain, joint swelling. Neurological: admits to headache, disequilibrium. denies dizziness, numbness, tingling, weakness. Skin: denies rash, laceration, abrasion. *Physical Exam - Vital Signs Last Vital Signs Temp Pulse Resp BP Pulse Ox 97.5 F L 78 18 156/110 99 01/09/18 08:29 01/09/18 08:29 01/09/18 08:29 01/09/18 08:29 01/09/18 08:29 - Physical Exam Comments: 01/09/18 09:51 Appearance: comfortable. HEENT: head is normocephalic, atraumatic. EOMI. PERRLA. Neck: supple. Full ROM. Heart: regular rhythm. no murmurs, rubs or gallops. Lungs: clear to auscultation bilaterally. no crackles, rhonchi or wheezing. no stridor. Abdomen: soft, nontender. normal bowel sounds. no rebound, guarding, masses. Back: no CVA tenderness. Extremities: Peripheral pulses intact. No lower extremity edema. Neurological: Alert. Oriented x3. CN2-12 intact. 5/5 strength all extremities. Full sensation all extremities and bilateral face. Romberg negative. Finger to nose normal. Gait normal in that he is able to walk straight unassisted, but he appears to be off-balance. 01/09/18 10:59 Pt is sleeping. Easily arousable to voice. ED Treatment Course - LABORATORY CBC & Chemistry Diagram: 01/09/18 10:15 01/09/18 10:15 Medical Decision Making - Medical Decision Making 01/09/18 09:52 37 year old male with PMH presents to ED complaining of rapid onset frontal headache associated with disequilibrium, blurry vision, photophobia. Pt has a history of headaches but states it is more intense today. Denies weakness, numbness, fever, chills, chest pain, shortness of breath, neck pain. Appears off balance when walking, otherwise neurologically intact. Initial Vital Signs Temp Pulse Resp BP Pulse Ox 97.5 F L 78 18 156/110 99 01/09/18 08:29 01/09/18 08:29 01/09/18 08:29 01/09/18 08:29 01/09/18 08:29 Pending labs, EKG, CT head. Reglan, IV Tylenol, IV fluids given. 01/09/18 10:44 No leukocytosis. 01/09/18 10:59 Pt reassessed, states he is feeling better. 01/09/18 12:24 CT head report - 1.4x1x0.4 cm solitary homogenous fat density lesion is seen in the right sylvian fissure, suggestive of lipoma, less likely a dermoid cyst. Recommend MRI. Pt will be discharged with referral for a PCP and neurologist. *DC/Admit/Observation/Transfer Diagnosis at time of Disposition: Headache - Discharge Dispostion Disposition: HOME Condition at time of disposition: Improved Decision to Admit order: No - Referrals Referrals: [facility] [place] [Provider Group] Lj Burnett MD [Staff Physician] - - Patient Instructions Printed Discharge Instructions: DI for Headache Additional Instructions: You were seen today for headache. You were given intravenous Reglan and Tylenol, as well as intravenous fluids. Your head CT was negative, except for an incidental finding of a fat mass in your head, please follow up with your primary care physician for an outpatient MRI. Take Tylenol over the counter for your headache. Drink lots of water to stay hydrated. Get at least 8 hours of sleep tonight. Please follow up with a primary care provider within 7 days, I have provided a referral for one for you. Please bring your paperwork given to you today with you. Please follow up with a neurologist within 7 days, I have provided a referral for one for you, with Dr. Burnett. Please bring your paperwork given to you today with you. Please return to the Emergency Department for weakness, numbness, fever, chills , nausea, vomiting, increasing pain, visual changes or any new, worsening or concerning symptoms. Hoy fuiste visto por dolor de meli. Le administraron Reglan y Tylenol por va intravenosa, as julien tambin fluidos intravenosos. La tomografa computarizada de coburn meli fue negativa, excepto por un hallazgo incidental de keerthi masa adiposa en coburn meli, por favor vamshi un seguimiento con coburn mdico de atencin primaria para keerthi resonancia magntica ambulatoria. [place] Tylenol sin receta para coburn dolor de meli. Laura kavin agua para mantenerte hidratado. Obtenga al menos 8 horas de sueo esta noche. Realice un seguimiento con un proveedor de atencin primaria dentro de los 7 wong, he proporcionado keerthi referencia para chucky para usted. Por favor traiga coburn papelera que se le entreg hoy con usted. Vamshi el seguimiento con un neurlogo dentro de los 7 wong, he proporcionado keerthi referencia de chucky para usted, con el Dr. Burnett. Por favor traiga coburn papelera que se le entreg hoy con usted. Regrese al servicio de urgencias por debilidad, entumecimiento, fiebre, escalofros, nuseas, vmitos, aumento del dolor, cambios visuales o cualquier cambio nuevo, que empeore o que afecte los sntomas. Print Language: LAO - Post Discharge Activity Forms/Work/School Notes: Back to Work
[2018-01-09] MEDS ORDERED: SODIUM CHLORIDE 1,000 ML IV STA (09:31)
[2018-01-09] MEDS ORDERED: ACETAMINOPHEN 1000 MG/100 ML VIAL (NON FORMULARY) IVPB ONE (09:31)
[2018-01-09] MEDS ORDERED: METOCLOPRAMIDE HCL INJECTION 10 MG/2 ML VIAL IVPUSH ONE (09:31)
[2018-01-09] MEDS ORDERED: METOCLOPRAMIDE HCL INJECTION 10 MG/2 ML VIAL ONE ×2 (09:58→09:59)
[2018-01-09] MEDS ORDERED: METOCLOPRAMIDE HCL 10 MG TABLET (FP) PO ONE (09:59)
[2018-01-09] MEDS ORDERED: ACETAMINOPHEN INJECTION 100 ML IVPB ONE ×2 (09:59→10:07)
[2018-01-09 10:36] LABS: HEMATOCRIT 44.4 % (35.4-49); HEMOGLOBIN 15.2 GM/dL (11.7-16.9); MCH 29.8 pg (25.7-33.7); MCHC 34.2 g/dl (32.0-35.9); MEAN CELL VOLUME 87.1 fl (80-96); MEAN PLT VOLUME 8.9 fl (7.5-11.1); PLATELET COUNT 196 K/MM3 (134-434); RBC 5.09 M/mm3 (4.00-5.60); RDW 13.1 % (11.9-15.9); WHITE BLOOD COUNT 6.3 K/mm3 (4.0-10.0)
[2018-01-09 11:04] LABS: ALBUMIN 3.9 g/dl (3.4-5.0); ANION GAP 6 (8-16); BILIRUBIN,TOTAL 0.3 mg/dL (0.2-1.0); BLOOD UREA NITROGEN 10 mg/dL (7-18); CALCIUM 9.1 mg/dL (8.5-10.1); CHLORIDE 108 mmol/L (98-107); CO2 28 mmol/L (21-32); CREATININE 0.7 mg/dL (0.7-1.3); GLUCOSE,RANDOM 102 mg/dL (74-106); POTASSIUM 4.5 mmol/L (3.5-5.1); SGOT/AST 10 U/L (15-37); SGPT/ALT 21 U/L (12-78); SODIUM 142 mmol/L (136-145); TOT PROT 7.2 g/dl (6.4-8.2)
[2018-01-09 11:06] LABS: ALK PHOS 77 U/L (45-117)
--- NOTE | 2018-01-09 12:54 | PDOC ---
Attending Attestation - Resident Resident Name: Rachel Waterman - ED Attending Attestation I have performed the following: I have examined & evaluated the patient, The case was reviewed & discussed with the resident, I agree w/resident's findings & plan, Exceptions are as noted - HPI HPI: 01/09/18 12:46 "The patient is a 36-year-old male, with a past medical history of HTN and headaches, who presents to the ED with a headache that began at 3 AM this morning. Pt states he awoke with the headache. He describes the pain as constant , localized to the frontal region, with associated nausea and photophobia. Pt states that he has had similar headaches for his entire life, but they have been increasing in severity recently. He denies thunderclap, denies worst headache of life. The patient took ibuprofen prior to arrival with no relief of his symptoms. He reports that this headache is similar in nature to his previous episodes. The patient denies any fever, chills, nausea, vomiting, diarrhea, or abdominal pain. The patient denies any chest pain or shortness of breath. The patient denies any weakness or lightheadedness. Allergies: NKA Social History: Current everyday smoker. Surgical History: Appendectomy, Microlumbar discectomy." - Physicial Exam PE: 01/09/18 12:51 "GENERAL: Awake, alert, and fully oriented, in no acute distress. HEAD: No signs of trauma EYES: PERRLA, EOMI, sclera anicteric, conjunctiva clear ENT: Auricles normal inspection, hearing grossly normal, nares patent, oropharynx clear without exudates. Moist mucosa NECK: Nontender, no stepoffs, Normal ROM, supple, no lymphadenopathy, JVD, or masses LUNGS: Breath sounds equal, clear to auscultation bilaterally. No wheezes, and no crackles HEART: Regular rate and rhythm, normal S1 and S2, no murmurs, rubs or gallops ABDOMEN: Soft, nontender, normoactive bowel sounds. No guarding, no rebound. No masses EXTREMITIES: Normal range of motion, no edema. No clubbing or cyanosis. No cords, erythema, or tenderness NEUROLOGICAL: Cranial nerves II through XII intact. 5/5 strength and sensation in all extremities, Normal speech, normal gait, normal cerebellar function SKIN: Warm, Dry, normal turgor, no rashes or lesions noted. " - Medical Decision Making 01/09/18 12:51 37 M with headache. Consistent with his prior history of headaches. No red flags for SAH or meningitis. Pt with no neuro deficits to suggest intracranial pathology. - Labs wnl - CT head with lipoma Reassessed s/p IVF, tylenol, and reglan - now feeling completely better. No longer has headache. Pt is well appearing, with normal vitals. Clinically stable for DC at this time. I discussed the physical exam findings, ancillary test results and final diagnoses with the patient. I answered all of the patient's questions. The patient was satisfied with the care received and felt comfortable with the discharge plan and treatment plan. The patient agrees to follow up with the primary care physician within 24-72 hours.
[2018-01-09 13:23] VITALS: BP 144/95; PULSE 65
--- NOTE | 2018-01-10 10:22 | EKG ---
Test Reason : Blood Pressure : / mmHG Vent. Rate : 063 BPM Atrial Rate : 063 BPM P-R Int : 128 ms QRS Dur : 102 ms QT Int : 450 ms P-R-T Axes : 030 010 032 degrees QTc Int : 460 ms NORMAL SINUS RHYTHM NORMAL ECG NO PREVIOUS ECGS AVAILABLE Confirmed by MARIAN MEEKS MD ([id number]) on 01/10/2018 10:21:34 AM Referred By: Confirmed By:MARIAN MEEKS MD
== END 2018-01-09 13:22 | disposition home or self-care (01) ==
LOC: JER 08:19
PROC: 3E033NZ Introduction of Analgesics, Hypnotics, Sedatives into Peripheral Vein, Percutaneous Approach (ICD-10-PCS; principal; 2018-01-09)
PROC: 3E033GC Introduction of Other Therapeutic Substance into Peripheral Vein, Percutaneous Approach (ICD-10-PCS; 2018-01-09)
DX: R51 Headache (principal); I10 Essential (primary) hypertension
CPT/HCPCS: 36415; 70450-TC; 80053; 82550; 82553; 84484; 85027; 93005; 93010; 96374; 96375; 99283-25; J0131; J7030

== ENCOUNTER 2018-09-06 20:22 | Emergency (ER) | payer SELFPAY, OTHER | END 2018-09-06 21:42 | disposition home or self-care (01) | LOC: JERFT 20:22 ==

== ENCOUNTER 2020-08-05 08:04 | Observation (INO) | payer OTHER ==
[2020-08-05] MEDS ORDERED: ACETAMINOPHEN 1000 MG/100 ML VIAL (NON FORMULARY) IVPB ONE (09:05)
[2020-08-05] MEDS ORDERED: KETOROLAC TROMETHAMINE 15 MG/ML VIAL IVPUSH ONE ×2 (09:05→11:37)
[2020-08-05] MEDS ORDERED: METHOCARBAMOL 500 MG TABLET PO ONE (09:05)
[2020-08-05] MEDS ORDERED: ONDANSETRON 4 MG/2 ML VIAL IVPUSH ONE (09:09)
[2020-08-05] MEDS ORDERED: ONDANSETRON 4 MG/2 ML VIAL ONE (10:20)
[2020-08-05] MEDS ORDERED: METHOCARBAMOL 500 MG TABLET ONE ×2 (10:20→21:09)
[2020-08-05] MEDS ORDERED: ACETAMINOPHEN INJECTION 100 ML IVPB ONE (10:20)
[2020-08-05 11:16] LABS: BASO % 0.1 % (0-2.0); EOS % 0.2 % (0-4.5); HEMATOCRIT 42.2 % (35.4-49); LYMPH % 11.5 % (8-40); MCH 30.9 pg (25.7-33.7); MCHC 35.6 g/dl (32.0-35.9); MEAN CELL VOLUME 86.8 fl (80-96); MEAN PLT VOLUME 8.8 fl (7.5-11.1); MONO % 3.5 % (3.8-10.2); NEUT % 84.7 % (42.8-82.8); PLATELET COUNT 244 K/MM3 (134-434); RBC 4.86 M/mm3 (4.00-5.60); RDW 12.6 % (11.9-15.9); WHITE BLOOD COUNT 10.4 K/mm3 (4.0-10.0)
[2020-08-05 11:20] LABS: INR 1.14 (0.83-1.09)
[2020-08-05 11:29] LABS: ALBUMIN 3.8 g/dl (3.4-5.0); BLOOD UREA NITROGEN 13.4 mg/dL (7-18); CALCIUM 9.4 mg/dL (8.5-10.1)
[2020-08-05 11:33] LABS: CREATININE 0.7 mg/dL (0.55-1.3); TOT PROT 7.2 g/dl (6.4-8.2)
[2020-08-05 11:36] LABS: BILIRUBIN,TOTAL 0.5 mg/dL (0.2-1)
[2020-08-05] MEDS ORDERED: KETOROLAC TROMETHAMINE 15 MG/ML VIAL ONE (13:07)
[2020-08-05] MEDS ORDERED: diazePAM 5 MG TABLET PO ONE (14:17)
[2020-08-05] MEDS ORDERED: DEXAMETHASONE SOD PHOSPHATE 4 MG/1 ML VIAL IVPUSH ONE (14:17)
[2020-08-05] MEDS ORDERED: diazePAM 5 MG TABLET ONE (16:16)
[2020-08-05] MEDS ORDERED: DEXAMETHASONE SOD PHOSPHATE 4 MG/1 ML VIAL ONE (16:16)
[2020-08-05 16:57] LABS: PH,URINE 7.5 (5.0-8.0); URINE APPEARANCE CLEAR; URINE BILIRUBIN NEGATIVE (NEGATIVE); URINE COLOR YELLOW; URINE GLUCOSE (UA) NEGATIVE (NEGATIVE); URINE KETONE NEGATIVE (NEGATIVE); URINE LEUK ESTERASE NEGATIVE (NEGATIVE); URINE NITRITE NEGATIVE (NEGATIVE); URINE PROTEIN NEGATIVE (NEGATIVE); URINE UROBILINOGEN 0.2 mg/dL (0.2-1.0)
[2020-08-05] MEDS ORDERED: hydrALAZINE HCL 20 MG/ML VIAL ONE (18:19)
[2020-08-05] MEDS: hydrALAZINE HCL 20 MG/ML VIAL IVPUSH PRN (18:28)
[2020-08-05] MEDS ORDERED: traMADol HCL 50 MG TABLET ONE (21:09)
[2020-08-05] MEDS: METHOCARBAMOL 500 MG TABLET PO SCH (21:16)
[2020-08-05] MEDS: traMADol HCL 50 MG TABLET PO PRN (21:16)
[2020-08-06] MEDS ORDERED: hydrALAZINE HCL 20 MG/ML VIAL ONE (02:11)
[2020-08-06] MEDS: hydrALAZINE HCL 20 MG/ML VIAL IVPUSH PRN (02:18)
[2020-08-06 04:29] VITALS: BMI 32.3
[2020-08-06] MEDS ORDERED: PNEUMOC 13-VAL CONJ-DIP CRM/PF 0.5 ML DISP.SYRIN IM ONE (04:29)
[2020-08-06] MEDS: METHOCARBAMOL 500 MG TABLET PO SCH ×3 (05:08→21:10)
[2020-08-06] MEDS: traMADol HCL 50 MG TABLET PO PRN ×2 (07:32→21:10)
[2020-08-06] MEDS ORDERED: PNEUMOCOCCAL 23 VACCINE 0.5 ML VIAL IM ONE (10:00)
[2020-08-06] MEDS ORDERED: FLU VACCINE (FLULAVAL) PF 60 MCG/0.5 ML SYRINGE 2020-2021 IM ONE (10:00)
[2020-08-06] MEDS: LISINOPRIL 20 MG TABLET PO SCH (10:23)
[2020-08-06] MEDS ORDERED: METHOCARBAMOL 500 MG TABLET PO SCH (14:28)
[2020-08-06] MEDS ORDERED: METHOCARBAMOL 500 MG TABLET PO ONE (15:09)
[2020-08-06] MEDS: GABAPENTIN 100 MG CAPSULE PO SCH ×2 (15:17→21:10)
[2020-08-06 22:01] LABS: BASO % 0.2 % (0-2.0); EOS % 0.9 % (0-4.5); LYMPH % 30.1 % (8-40); MCH 30.8 pg (25.7-33.7); MCHC 34.8 g/dl (32.0-35.9); MEAN CELL VOLUME 88.4 fl (80-96); MEAN PLT VOLUME 8.7 fl (7.5-11.1); MONO % 8.2 % (3.8-10.2); NEUT % 60.6 % (42.8-82.8); PLATELET COUNT 261 K/MM3 (134-434); RBC 4.86 M/mm3 (4.00-5.60); RDW 12.8 % (11.9-15.9); WHITE BLOOD COUNT 10.3 K/mm3 (4.0-10.0)
[2020-08-06 22:18] LABS: POTASSIUM 4.1 mmol/L (3.5-5.1)
[2020-08-06 22:21] LABS: ALBUMIN 3.8 g/dl (3.4-5.0); BLOOD UREA NITROGEN 18.4 mg/dL (7-18); CALCIUM 9.4 mg/dL (8.5-10.1)
[2020-08-06 22:24] LABS: CREATININE 0.8 mg/dL (0.55-1.3)
[2020-08-06 22:26] LABS: BILIRUBIN,TOTAL 0.3 mg/dL (0.2-1); TOT PROT 7.2 g/dl (6.4-8.2)
[2020-08-07] MEDS: traMADol HCL 50 MG TABLET PO PRN (03:41)
[2020-08-07] MEDS ORDERED: ACETAMINOPHEN 325 MG TABLET (FP) PO ONE (03:59)
[2020-08-07] MEDS: METHOCARBAMOL 500 MG TABLET PO SCH ×2 (05:50→14:09)
[2020-08-07] MEDS: GABAPENTIN 100 MG CAPSULE PO SCH (05:50)
[2020-08-07] MEDS: LISINOPRIL 20 MG TABLET PO SCH (09:11)
[2020-08-07 09:20] LABS: BASO % 0.2 % (0-2.0); EOS % 0.9 % (0-4.5); HEMATOCRIT 45.1 % (35.4-49); HEMOGLOBIN 15.5 GM/dL (11.7-16.9); MCH 30.8 pg (25.7-33.7); MCHC 34.4 g/dl (32.0-35.9); MEAN CELL VOLUME 89.7 fl (80-96); MEAN PLT VOLUME 9.1 fl (7.5-11.1); MONO % 8.7 % (3.8-10.2); NEUT % 63.2 % (42.8-82.8); PLATELET COUNT 263 K/MM3 (134-434); RBC 5.03 M/mm3 (4.00-5.60); RDW 12.9 % (11.9-15.9); WHITE BLOOD COUNT 10.4 K/mm3 (4.0-10.0)
[2020-08-07] MEDS ORDERED: predniSONE 20 MG TABLET (UD) PO ONE (10:00)
[2020-08-07] MEDS ORDERED: PANTOPRAZOLE 40 MG TABLET PO ONE (10:00)
[2020-08-07 10:27] LABS: ALBUMIN 3.8 g/dl (3.4-5.0); BLOOD UREA NITROGEN 18.7 mg/dL (7-18)
[2020-08-07 10:31] LABS: CREATININE 0.8 mg/dL (0.55-1.3)
[2020-08-07 10:32] LABS: TOT PROT 7.3 g/dl (6.4-8.2)
[2020-08-07 10:34] LABS: BILIRUBIN,TOTAL 0.6 mg/dL (0.2-1)
[2020-08-07] MEDS ORDERED: GABAPENTIN 300 MG CAPSULE PO SCH (11:16)
[2020-08-07 15:32] VITALS: BP 146/89; PULSE 92; TEMP 98.5
== END 2020-08-07 19:23 | disposition home or self-care (01) ==
LOC: JER 08:04 → UNDOADMOB 14:30 → INTOOBSV 14:30 → JERBED 14:30 → J8W 08-06 03:40 → JERBED 08-06 03:40 → J8W 08-06 11:19 → JERBED 08-06 11:19
PROVIDERS: ADMIT Internal Medicine; ATTEND Internal Medicine
DX: M54.16 Radiculopathy, lumbar region (principal); M54.31 Sciatica, right side; I10 Essential (primary) hypertension; E66.9 Obesity, unspecified; Z68.32 Body mass index [BMI] 32.0-32.9, adult; Z98.890 Other specified postprocedural states
CPT/HCPCS: 36415; 72131-TC; 72148-TC; 80053; 81003; 83735; 84100; 85025; 85610; 90732; 93005; 93010; 97116-GP; 97162-GP; 99285-25; C9803; G0009; G0378; J0131; Q2036; U0003

== ENCOUNTER 2020-10-22 10:12 | Observation (INO) | payer OTHER ==
[2020-10-22 10:50] LABS: BASO % 0.4 % (0-2.0); EOS % 0.9 % (0-4.5); HEMATOCRIT 45.3 % (35.4-49); HEMOGLOBIN 15.5 GM/dL (11.7-16.9); LYMPH % 23.6 % (8-40); MCH 31.5 pg (25.7-33.7); MCHC 34.2 g/dl (32.0-35.9); MEAN CELL VOLUME 92.3 fl (80-96); MEAN PLT VOLUME 8.9 fl (7.5-11.1); MONO % 5.9 % (3.8-10.2); NEUT % 69.2 % (42.8-82.8); PLATELET COUNT 208 K/MM3 (134-434); RBC 4.91 M/mm3 (4.00-5.60); RDW 13.3 % (11.9-15.9); WHITE BLOOD COUNT 9.6 K/mm3 (4.0-10.0)
[2020-10-22 11:13] LABS: CHLORIDE 108 mmol/L (98-107); SODIUM 142 mmol/L (136-145)
[2020-10-22 11:17] LABS: CALCIUM 8.7 mg/dL (8.5-10.1)
[2020-10-22 11:18] LABS: ALBUMIN 3.7 g/dl (3.4-5.0); ANION GAP 5 MMOL/L (8-16); CO2 28 mmol/L (21-32); GLUCOSE,RANDOM 93 mg/dL (74-106)
[2020-10-22 11:21] LABS: CREATININE 0.6 mg/dL (0.55-1.3); SGOT/AST 38 U/L (15-37); SGPT/ALT 34 U/L (13-61)
[2020-10-22 11:23] LABS: BILIRUBIN,TOTAL 0.4 mg/dL (0.2-1); TOT PROT 6.9 g/dl (6.4-8.2)
[2020-10-22 11:24] LABS: ALK PHOS 66 U/L (45-117)
[2020-10-22 11:47] LABS: INR 1.14 (0.83-1.09); PROTHROMBIN TIME (PATIENT) 13.7 SEC (9.7-13.0)
[2020-10-22] MEDS ORDERED: SODIUM CHLORIDE 500 ML IV STA (12:02)
[2020-10-22] MEDS ORDERED: ACETAMINOPHEN 325 MG TABLET (FP) PO ONE (12:02)
[2020-10-22] MEDS ORDERED: METOCLOPRAMIDE HCL INJECTION 10 MG/2 ML VIAL IVPUSH ONE (12:02)
[2020-10-22 12:10] LABS: MAGNESIUM 1.8 mg/dL (1.8-2.4)
[2020-10-22] MEDS ORDERED: METOCLOPRAMIDE HCL INJECTION 10 MG/2 ML VIAL ONE (12:15)
[2020-10-22] MEDS ORDERED: ACETAMINOPHEN 325 MG TABLET (FP) ONE (12:15)
[2020-10-22] MEDS ORDERED: MAGNESIUM SULF 50% (8.12 MEQ/2 ML-1 GM VIAL) IVPB ONE (14:37)
[2020-10-22] MEDS ORDERED: amLODIPine BESYLATE 5 MG TABLET (FP) PO ONE (14:43)
[2020-10-22] MEDS ORDERED: amLODIPine BESYLATE 5 MG TABLET (FP) ONE (14:51)
[2020-10-22] MEDS ORDERED: MAGNESIUM 1GM/D5W - 1 GM/100 ML IVPB IVPB ONE (14:51)
[2020-10-22] MEDS ORDERED: HYDROCHLOROTHIAZIDE 25 MG TABLET (FP) ONE (17:48)
[2020-10-22] MEDS ORDERED: ASPIRIN COATED 81 MG TABLET.EC ONE (17:48)
[2020-10-22] MEDS: HYDROCHLOROTHIAZIDE 12.5 MG CAPSULE (FP) PO SCH (17:49)
[2020-10-22] MEDS: ASPIRIN COATED 81 MG TABLET.EC PO SCH (17:49)
[2020-10-22] MEDS: ACETAMINOPHEN 325 MG TABLET (FP) PO PRN (20:36)
[2020-10-22] MEDS ORDERED: amLODIPine BESYLATE 5 MG TABLET (FP) PO SCH (22:00)
[2020-10-22 22:49] VITALS: BMI 34.4
[2020-10-23] MEDS: ACETAMINOPHEN 325 MG TABLET (FP) PO PRN ×2 (02:28→21:32)
[2020-10-23 07:54] LABS: BASO % 0.2 % (0-2.0); HEMOGLOBIN 14.8 GM/dL (11.7-16.9); LYMPH % 21.2 % (8-40); MCH 32.1 pg (25.7-33.7); MCHC 35.2 g/dl (32.0-35.9); MEAN CELL VOLUME 91.2 fl (80-96); MONO % 5.8 % (3.8-10.2); NEUT % 71.8 % (42.8-82.8); PLATELET COUNT 218 K/MM3 (134-434); RBC 4.61 M/mm3 (4.00-5.60); RDW 13.1 % (11.9-15.9); WHITE BLOOD COUNT 9.1 K/mm3 (4.0-10.0)
[2020-10-23 08:27] LABS: CALCIUM 8.9 mg/dL (8.5-10.1)
[2020-10-23 08:29] LABS: ALBUMIN 3.6 g/dl (3.4-5.0); BLOOD UREA NITROGEN 7.2 mg/dL (7-18); CREATININE 0.8 mg/dL (0.55-1.3)
[2020-10-23 08:31] LABS: TOT PROT 6.8 g/dl (6.4-8.2)
[2020-10-23 08:34] LABS: BILIRUBIN,TOTAL 0.8 mg/dL (0.2-1)
[2020-10-23] MEDS ORDERED: LISINOPRIL 20 MG TABLET PO SCH (10:00)
[2020-10-23] MEDS: ASPIRIN COATED 81 MG TABLET.EC PO SCH (10:21)
[2020-10-23] MEDS: HYDROCHLOROTHIAZIDE 12.5 MG CAPSULE (FP) PO SCH (10:21)
[2020-10-23] MEDS: amLODIPine BESYLATE 10 MG TABLET (FP) PO SCH (10:24)
[2020-10-23] MEDS: ENOXAPARIN NA (PORCINE) 40 MG/0.4 ML DISP.SYRIN SQ SCH (10:24)
[2020-10-23] MEDS: LISINOPRIL 20 MG TABLET PO SCH (10:24)
[2020-10-23] MEDS: HYDROCHLOROTHIAZIDE 25 MG TABLET (FP) PO SCH (13:09)
[2020-10-23] MEDS ORDERED: MELATONIN 5 MG TABLETS PO ONE (20:54)
[2020-10-23] MEDS ORDERED: ATORVASTATIN CA 40 MG TABLET (FP) PO SCH (22:00)
[2020-10-24] MEDS ORDERED: ACETAMINOPHEN 1000 MG/100 ML VIAL (NON FORMULARY) IVPB ONE (06:16)
[2020-10-24] MEDS: ASPIRIN COATED 81 MG TABLET.EC PO SCH (09:24)
[2020-10-24] MEDS: amLODIPine BESYLATE 10 MG TABLET (FP) PO SCH (09:25)
[2020-10-24] MEDS: HYDROCHLOROTHIAZIDE 25 MG TABLET (FP) PO SCH (09:25)
[2020-10-24] MEDS: ENOXAPARIN NA (PORCINE) 40 MG/0.4 ML DISP.SYRIN SQ SCH (09:25)
[2020-10-24] MEDS: LISINOPRIL 20 MG TABLET PO SCH (09:25)
[2020-10-24 13:56] VITALS: BP 144/86; PULSE 97; TEMP 98
[2020-10-24] MEDS ORDERED: NICOTINE 21 MG/24 HOURS TOPICAL PATCH TD SCH (14:45)
== END 2020-10-24 17:26 | disposition home or self-care (01) ==
LOC: JER 10:12 → JERBED 14:05 → INTOOBSV 14:05 → UNDOADMOB 14:05 → JERBED 20:26 → J4W 20:26 → JERBED 10-23 08:46 → J4W 10-23 08:46
PROVIDERS: ADMIT Internal Medicine
PROC: 3E023GC Introduction of Other Therapeutic Substance into Muscle, Percutaneous Approach (ICD-10-PCS; principal; 2020-10-23)
PROC: 3E033NZ Introduction of Analgesics, Hypnotics, Sedatives into Peripheral Vein, Percutaneous Approach (ICD-10-PCS; 2020-10-23)
PROC: 3E033GC Introduction of Other Therapeutic Substance into Peripheral Vein, Percutaneous Approach (ICD-10-PCS; 2020-10-23)
PROC: 3E0337Z Introduction of Electrolytic and Water Balance Substance into Peripheral Vein, Percutaneous Approach (ICD-10-PCS; 2020-10-23)
DX: I10 Essential (primary) hypertension (principal); M54.9 Dorsalgia, unspecified; R51.9 Headache, unspecified; R07.9 Chest pain, unspecified; F17.210 Nicotine dependence, cigarettes, uncomplicated; E66.9 Obesity, unspecified; Z68.34 Body mass index [BMI] 34.0-34.9, adult; Z29.9 Encounter for prophylactic measures, unspecified
CPT/HCPCS: 36415; 70450-TC; 70496-TC; 71045-TC-FY; 80053; 80061; 82550; 82553; 83036; 83721; 83735; 84443; 84484; 85025; 85610; 85730; 93005; 93010; 93306-TC; 93351; 96361; 96372; 96374; 96375; 99285-25; C9803; G0378; J0131; Q9967; U0003; U0005